=== PATIENT | female | born 2000 | race Caucasian/White ===

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

== ENCOUNTER 2021-03-29 15:55 | Outpatient (RCR) | payer OTHER, SELFPAY ==
[2021-01-14 10:00] VITALS: BMI 44.6
== END 2021-04-05 23:59 ==
LOC: NS 15:55
PROVIDERS: PCP Family Medicine; Visit Provider Family Medicine
DX: Z71.3 Dietary counseling and surveillance (principal); E66.01 Morbid (severe) obesity due to excess calories
CPT/HCPCS: 97802

== ENCOUNTER 2021-04-27 08:00 | Outpatient (RCR) | payer OTHER, SELFPAY ==
[2021-01-14 10:00] VITALS: BMI 44.6
== END 2021-04-27 23:59 | disposition home or self-care (01) ==
LOC: NS 08:00
PROVIDERS: PCP Family Medicine; Visit Provider Family Medicine
DX: Z71.3 Dietary counseling and surveillance (principal); E66.01 Morbid (severe) obesity due to excess calories
CPT/HCPCS: 97803

== ENCOUNTER → 2021-10-31 | Outpatient (CLI) | payer OTHER, SELFPAY | END | disposition home or self-care (01) | LOC: LABSPEC 11-01 06:11 | PROVIDERS: PCP Family Medicine; Referring Provider Family Medicine; Visit Provider Family Medicine | DX: U07.1 COVID-19 (principal) | CPT/HCPCS: 87635; U0005; U0003 ==

== ENCOUNTER 2021-11-10 10:32 | Outpatient (CLI) | payer OTHER, SELFPAY | END 2021-11-10 23:59 | disposition short-term general hospital (02) | PROVIDERS: PCP Family Medicine; Referring Provider Family Medicine; Visit Provider Family Medicine | DX: G47.10 Hypersomnia, unspecified (principal); R06.83 Snoring | CPT/HCPCS: 95806 ==

== ENCOUNTER 2022-01-24 07:48 | Outpatient (CLI) | payer OTHER, SELFPAY | END 2022-01-24 23:59 | disposition home or self-care (01) | LOC: LABSPEC 01-26 07:49 | PROVIDERS: PCP Family Medicine; Visit Provider Family Medicine | DX: L05.91 Pilonidal cyst without abscess (principal) | CPT/HCPCS: 87070; 87075; 87077; 87186; 87205 ==

== ENCOUNTER 2022-02-14 10:25 | Outpatient (CLI) | payer OTHER, SELFPAY | END 2022-02-14 23:59 | disposition home or self-care (01) | PROVIDERS: PCP Family Medicine; Referring Provider Family Medicine; Visit Provider Family Medicine | DX: Z20.828 Contact with and (suspected) exposure to other viral communicable diseases (principal) | CPT/HCPCS: 87635; U0003; U0005 ==

== ENCOUNTER → 2022-07-25 | Outpatient (CLI) | payer OTHER, SELFPAY | END | disposition home or self-care (01) | PROVIDERS: PCP Family Medicine; Visit Provider Family Medicine | DX: Z20.828 Contact with and (suspected) exposure to other viral communicable diseases (principal) | CPT/HCPCS: 87635; U0003; U0005 ==

== ENCOUNTER → 2023-04-12 | Outpatient (CLI) | payer OTHER, SELFPAY ==
[2023-04-12 13:08] LABS: Absolute Lymphocyte Count 2.47 X10^3/uL (0.83-4.51); Absolute Neutrophil Count 5.6 X10^3/uL (2.0-7.7); Basophil# 0.07 X10^3/uL; Basophil% 0.8 % (0-1); Eosinophil# 0.29 X10^3/uL; Eosinophils% 3.2 % (0-5); Hematocrit 44.9 % (37-47); Hemoglobin 14.9 g/dL (12.0-15.0); Lymphocyte # 2.47 X10^3/ul (0.83-4.51); Lymphocyte % 27.4 % (19-41); Mean Corp Hgb Conc 33.2 g/dL (32-36); Mean Corpuscular Hgb 29.6 pg (27.0-32.0); Mean Corpuscular Volume 89.3 fL (81-99); Mean Platelet Vol. 9.6 fl (6.2-12.0); Monocyte# 0.54 X10^3/uL; NRBC Flagged by Analyzer 0 % (0-5); Neutrophil # 5.62 X10^3/uL (2.7-7.7); Neutrophil % 62.3 % (47-70); Platelet Count 326 K/mm3 (150-450); RBC Distribution Width CV 11.9 % (11.6-14.6); RBC Distribution Width SD 38.6 fl (35.1-43.9); Red Blood Count 5.03 M/mm3 (4.2-5.4)
[2023-04-12 14:13] LABS: ALB/GLOB Ratio 0.8 RATIO (0.9-2.4); AST(SGOT) 12 U/L (15-37); Alanine Aminotransfer ALT/SGPT 27 U/L (13-56); Albumin, Serum 3.3 g/dL (3.2-5.0); Alkaline Phosphatase 85 U/L (45-117); Anion Gap 8 (5-15); BUN 8 mg/dL (7-18); BUN/Creat Ratio 11.2 RATIO (10-20); Calcium,Total 9.5 mg/dL (8.5-10.1); Chloride 109 mmol/L (98-107); Creatinine, Serum 0.72 mg/dL (0.55-1.02); EST Glomerular Filtration Rate 108 mL/min (>60); Est Glom Filt Rate - Afr Amer 131 mL/min (>60); Globulin 4.3 g/dL (2.2-4.2); Glucose 123 mg/dL (74-106); Potassium 3.6 mmol/L (3.5-5.1); Protein, Total 7.6 g/dL (6.4-8.2); Sodium Level 139 mmol/L (136-145)
[2023-04-12 14:22] LABS: Vitamin B12 615 pg/mL (211-911); Vitamin D,25 Hydroxy 43.2 ng/mL
== END | disposition home or self-care (01) ==
LOC: BFHLAB 10:34
PROVIDERS: PCP Nurse Practitioner Family; Referring Provider Nurse Practitioner Family; Visit Provider Nurse Practitioner Family
DX: R53.83 Other fatigue (principal); J20.9 Acute bronchitis, unspecified
CPT/HCPCS: 36415; 80053; 82306; 82607; 85025

== ENCOUNTER → 2024-02-22 | Outpatient (CLI) | payer OTHER, SELFPAY ==
[2024-02-22 15:58] LABS: T4 Free Direct 1.23 ng/dL (0.76-1.46); Thyroid Stim Hormone (TSH) 1.49 uIU/mL (0.358-3.74)
== END | disposition home or self-care (01) ==
PROVIDERS: PCP Family Medicine; Referring Provider Nurse Practitioner Family; Visit Provider Nurse Practitioner Family
DX: Z11.3 Encounter for screening for infections with a predominantly sexual mode of transmission (principal); N93.9 Abnormal uterine and vaginal bleeding, unspecified
CPT/HCPCS: 36415; 84439; 84443

== ENCOUNTER 2024-02-27 07:55 | Emergency (ER) | payer OTHER, SELFPAY ==
[2024-02-27 07:56] VITALS: BP 132/88; PULSE 92; RESP 18; TEMP 36.3; O2SAT 99; BMI 47.5
[2024-02-27] MEDS: Ondansetron 4 MG/2 ML Vial IV (08:43)
[2024-02-27] MEDS: Morphine 4 MG/ML Syringe IV (08:43)
[2024-02-27] MEDS: 0.9% Normal Saline (1000mL) 1,000 ML 125 ML IV (08:50)
[2024-02-27 08:55] LABS: Absolute Lymphocyte Count 2.08 X10^3/uL (0.83-4.51); Absolute Neutrophil Count 9.3 X10^3/uL (2.0-7.7); Basophil# 0.07 X10^3/uL; Basophil% 0.6 % (0-1); Eosinophil# 0.31 X10^3/uL; Eosinophils% 2.5 % (0-5); Hemoglobin 14.9 g/dL (12.0-15.0); Lymphocyte # 2.08 X10^3/ul (0.83-4.51); Lymphocyte % 16.8 % (19-41); Mean Corp Hgb Conc 33.9 g/dL (32-36); Mean Corpuscular Hgb 29.6 pg (27.0-32.0); Mean Corpuscular Volume 87.5 fL (81-99); Mean Platelet Vol. 9.4 fl (6.2-12.0); Monocyte# 0.64 X10^3/uL; Monocyte% 5.2 % (0-10); NRBC Flagged by Analyzer 0 % (0-5); Neutrophil # 9.27 X10^3/uL (2.7-7.7); Neutrophil % 74.6 % (47-70); Platelet Count 301 K/mm3 (150-450); RBC Distribution Width CV 12.5 % (11.6-14.6); RBC Distribution Width SD 39.8 fl (35.1-43.9); Red Blood Count 5.03 M/mm3 (4.2-5.4); White Blood Count 12.4 K/mm3 (4.4-11.0)
[2024-02-27 09:13] LABS: Internal QC Validated? YES +Cl - CLEAR BKGD; Pregnancy, Serum, hCG Quali. NEGATIVE Negative
--- NOTE | 2024-02-27 09:20 | ED.VIS.GI ---
HPI HPI - GI History of Present Illness Chief Complaint: Abd Pain Informant: patient and parent Narrative Narrative: 24-year-old female presenting to the emergency room with a chief complaint of abdominal pain vomiting. Patient states for the past couple months she has had pain mostly left-sided with intermittent diarrhea. She has an upcoming appointment with gastroenterology but not to the summer. Today in the last night she had pain right upper quadrant going towards her right flank. She notes some vomiting with it. No reported fevers. She has not yet had anything to eat or drink today. She otherwise states she is very healthy. Yesterday's bowel movement was formed as has the past couple weeks. No skin discoloration or discoloration of stool. [facility] Medical History Depression with anxiety Encounter for screening for COVID-19 Pilonidal cyst Home Medications cyclobenzaprine 5 mg tablet 5 - 10 mg PO QHS 02/27/24 [History Last Taken Unknown] omeprazole 20 mg capsule,delayed release 20 mg PO BID #28 caps 02/27/24 [Rx Last Taken Unknown] scopolamine base 1 mg over 3 days transdermal patch 1 patch topical Q3D PRN nausea and vomiting 02/27/24 [History Last Taken Unknown] sertraline 100 mg tablet 100 mg PO DAILY 02/27/24 [History Last Taken Unknown] sucralfate 1 gram tablet (Carafate) 1 g PO Q6H #56 tabs 02/27/24 [Rx Last Taken Unknown] Allergy/AdvReac Type Severity Reaction Status Date / Time No Known Allergies Allergy Verified 01/14/21 10:02 Family History Mother Asthma Skin cancer Grandmother Rheumatoid arthritis Hyperthyroidism Skin cancer Asthma ADHD (attention deficit hyperactivity disorder) Myocardial infarction Grandfather Kidney disease Aortic stenosis Diabetes Surgical History No history of previous surgery Social History Smoking Status: Never smoker alcohol intake: never what type of physical activity do you participate in: additional details: soccer and conditioning frequency: 3-4 times per week ROS ROS ED Constitutional Constitutional ED: Denies chills, fever(s) or weight loss Eyes Eyes: Denies change in vision or diplopia ENT ENT ED: Denies ear pain, rhinorrhea or sore throat Cardiovascular Cardiovascular: Denies chest pain, orthopnea, palpitations or racing heartbeat Respiratory/Chest Respiratory/Chest: Denies cough, dyspnea or orthopnea Gastrointestinal Gastrointestinal: Reports abdominal pain, diarrhea, nausea and vomiting Genitourinary Genitourinary ED: Denies dysuria, hematuria or urinary frequency Musculoskeletal Musculoskeletal: Denies arthralgias or myalgias Integumentary Denies abscess or rash Neurologic Neurologic: Denies headache(s) or weakness Psychiatric Psychiatric: Denies anxiety, depression, suicidal ideation or suicidal thoughts Endocrine Endocrinology: Denies polydipsia, polyphagia or polyuria Allergic/Immunologic Allergic/Immunologic ED: Denies mouth swelling, tongue swelling or urticaria EXAM Physical Exam Const Vital Signs: 02/27/24 07:56 02/27/24 09:55 02/27/24 11:00 Temperature 97.4 F L Temperature Source Temporal Pulse Rate 92 75 78 Respiratory Rate 18 19 H 16 Blood Pressure 132/88 H 152/113 H 122/69 H Blood Pressure Mean 102 126 86 Pulse Ox 99 97 98 Oxygen Delivery Method Room Air Room Air Room Air Positive well nourished and well developed General Appearance ED: well developed HEENT Reports normocephalic, head/scalp atraumatic and moist mucous membranes Eyes PERRL and EOMs intact bilaterally Neck no lymphadenopathy, supple and no JVD Resp normal respiratory effort and clear to auscultation bilaterally Cardio regular rate, regular rhythm and no murmurs GI Inspection: Negative for abdominal distention Auscultation: normoactive bowel sounds Palpation: soft and tender RUQ; Negative for guarding or rebound tenderness present Back/Spine no CVA tenderness and normal ROM Extremity normal to inspection General Extremety ED: Negative for edema General Extremity: Negative for edema Neuro oriented x3 and CN's II-XII intact bilaterally Sensorium / Orientation: alert Motor Exam: strength 5/5 throughout Psych mental status grossly normal Mood & Affect: Negative for depressed or tearful Skin no rashes or lesions noted and no wounds MDM MDM MDM Narrative Medical decision making narrative: Differential includes but not limited to gallbladder disease pancreatitis colitis COFFMAN fatty liver UTI ureterolithiasis GERD/PUD. White count 12.4 platelet count of 301 hemoglobin 14.9 test is negative. Lipase 29. Normal LFTs and bilirubin. BMP shows a glucose of 103. Patient received IV fluids morphine and Zofran. CT of the pelvis was obtained which is negative for acute findings. Please see the radiologist read. Urinalysis was obtained which demonstrates 10-25 white cells 10-25 squamous cells 2+ bacteria. This most likely contaminated specimen with no overt infection. Patient received morphine Zofran and IV fluids. At this point we talked about following up. We talked about the possibility of needing a HIDA scan. My bedside ultrasound does not demonstrate any pericholecystic fluid noted as the CT. Negative Ratliff's. Her doctor reportedly has called her in omeprazole and Carafate which I think is a reasonable place to start and then arrange follow-up to see if it has made any changes. Patient to return if worsening or concerns History & Record Review Discussion w/independent historian: Patient and Family Lab Data Attestation: I reviewed the patient's lab results. Labs: Laboratory Results - last 24 hr 02/27/24 02/27/24 08:38 10:05 WBC 12.4 H RBC 5.03 Hgb 14.9 Hct 44.0 MCV 87.5 MCH 29.6 MCHC 33.9 RDW Std Deviation 39.8 RDW Coeff of Nuvia 12.5 Plt Count 301 MPV 9.4 Immature Gran % (Auto) 0.300 Neut % (Auto) 74.6 H Lymph % (Auto) 16.8 L Geary % (Auto) 5.2 Eos % (Auto) 2.5 Baso % (Auto) 0.6 Absolute Neuts (auto) 9.3 H Absolute Lymphs (auto) 2.08 Nucleated RBC % 0 Sodium 140 Potassium 3.7 Chloride 111 H Carbon Dioxide 23.0 Anion Gap 6 BUN 10 Creatinine 0.75 Estim Creat Clear Calc 128.94 Est GFR (MDRD) Af Amer 123 Est GFR (MDRD) Non-Af 102 BUN/Creatinine Ratio 13.4 Glucose 103 Calcium 8.9 Total Bilirubin 0.60 Direct Bilirubin 0.16 AST 13 L ALT 23 Alkaline Phosphatase 74 Total Protein 7.4 Albumin 3.4 Globulin 4.0 Lipase 29 Serum , Qual NEGATIVE Urine Color Yellow Urine Clarity Clear Urine pH 5.0 Ur Specific Maskell 1.015 Urine Protein Negative Urine Glucose (UA) Normal Urine Ketones Negative Urine Occult Blood Negative Urine Nitrite Negative Urine Bilirubin Negative Urine Urobilinogen Normal Ur Leukocyte Esterase 500 H Urine RBC 0 SEEN Urine WBC 10-25 SEEN Ur Squamous Epith Cells 10-25 SEEN Urine Bacteria 1+ Urine Mucus 0 SEEN Radiography Diagnostic Testing: Clinical Impression(s) from Imaging Studies Abdomen/Pelvis CT 02/27/24 09:27 IMPRESSION: Normal enhanced CT of the abdomen and pelvis. Electronically Signed: Flakito Garcia MD at 10:09 EDT , Discharge Plan Triage Chief Complaint: Abd Pain ED Provider: Rico Madrigal Dx/Rx/DC Orders Clinical Impression: Abdominal pain Instructions: Abdominal Pain Prescriptions: New omeprazole 20 mg capsule,delayed release(DR/EC) 20 mg PO BID Qty: 28 0RF sucralfate [Carafate] 1 gram tablet 1 g PO Q6H Qty: 56 0RF No Action scopolamine base 1 mg over 3 days patch 3 day 1 patch topical Q3D PRN (Reason: nausea and vomiting) cyclobenzaprine 5 mg tablet 5 - 10 mg PO QHS sertraline 100 mg tablet 100 mg PO DAILY Hold Instructions: Order Completed Primary Care Provider: Joann Arcos Referrals: Joann Arcos DO [Primary Care Provider] - 1-2 Weeks Disposition Disposition: Home, Self Care
[2024-02-27 09:23] LABS: AST(SGOT) 13 U/L (15-37); Alanine Aminotransfer ALT/SGPT 23 U/L (13-56); Albumin, Serum 3.4 g/dL (3.2-5.0); Alkaline Phosphatase 74 U/L (45-117); Anion Gap 6 (5-15); BUN 10 mg/dL (7-18); BUN/Creat Ratio 13.4 RATIO (10-20); Bilirubin, Direct 0.16 mg/dL (0.00-0.30); Calcium,Total 8.9 mg/dL (8.5-10.1); Chloride 111 mmol/L (98-107); Creatinine, Serum 0.75 mg/dL (0.55-1.02); EST Glomerular Filtration Rate 102 mL/min (>60); Est Glom Filt Rate - Afr Amer 123 mL/min (>60); Estimated Creatinine Clearance 128.94 ml/min; Glucose 103 mg/dL (74-106); Lipase 29 U/L (13-75); Potassium 3.7 mmol/L (3.5-5.1); Protein, Total 7.4 g/dL (6.4-8.2); Sodium Level 140 mmol/L (136-145)
--- NOTE | 2024-02-27 09:27 | CT_ITS ---
STUDY: CT ABDOMEN AND PELVIS WITH CONTRAST REASON FOR EXAM: Female, 24 years old. Right-sided abdominal pain with nausea and vomiting. RADIATION DOSAGE (If Supplied By Facility): CTDIvol = ( 14.88 ) mGy, DLP = ( 1256.92 ) mGycm TECHNIQUE: Transaxial images were obtained from the dome of the diaphragm to the symphysis pubis without oral contrast. IV 100mL Isovue-300 was administered. Sagittal and coronal images were reconstructed. Individualized dose optimization techniques were used for this CT. COMPARISON: None. FINDINGS: The visualized lung bases are unremarkable. The visualized portions of the heart are within normal limits. Normal liver. Normal gallbladder and extrahepatic biliary system. Normal spleen. Normal pancreas. Normal bilateral adrenal glands. Normal right kidney. Normal left kidney. Normal visualized stomach. Normal small intestine. Moderate amount of fecal material is seen in the colon. The appendix is visualized and appears normal. Normal abdominal aorta. Normal inferior vena cava. Normal retroperitoneum. Normal urinary bladder. Normal abdominal wall. Normal osseous structures. CT/Abdomen/Pelvis W IV Cont ONLY IMPRESSION: Normal enhanced CT of the abdomen and pelvis. Electronically Signed: Flakito Garcia MD at 10:09 EDT ,
[2024-02-27 09:55] VITALS: BP 152/113; PULSE 75; RESP 19; O2SAT 97
[2024-02-27 10:19] LABS: Mucous, Urine 0 SEEN /hpf (<or=2+); Red Blood Cells-Urine 0 SEEN /hpf (0-5)
[2024-02-27 10:54] LABS: Color, Urine Yellow (Yellow); Glucose, Dipstick Normal (Normal); Ketone-Dipstick Negative (Negative); Leukocyte Esterase-Dipstick 500 /ul (Negative); Nitrite-Dipstick Negative (Negative); Occult Blood-Urine Negative /ul (Negative); Protein-Dipstick Negative (Negative); Specific Gravity, Urine 1.015 (1.002-1.030); Urine Bilirubin Dipstick Negative (Negative); Urine Clarity Clear (Clear); Urine Urobilinogen Normal (Normal)
[2024-02-27 11:00] VITALS: BP 122/69; PULSE 78; RESP 16; O2SAT 98
[2024-02-27 11:10] LABS: Squamous Epithelial Cells - UA 10-25 SEEN /hpf (5-10)
[2024-02-27 11:11] LABS: Bacteria 1+ /hpf (None Seen); White Blood Cells 10-25 SEEN /hpf (0-5)
[2024-02-27 11:53] VITALS: BP 117/78; PULSE 88; RESP 16; TEMP 36.6; O2SAT 97
== END 2024-02-27 11:54 | disposition home or self-care (01) ==
PROVIDERS: Emergency Provider Emergency Medicine; PCP Family Medicine; Visit Provider Emergency Medicine
DX: R10.11 Right upper quadrant pain (principal); R11.10 Vomiting, unspecified; F41.8 Other specified anxiety disorders; Z79.899 Other long term (current) drug therapy
CPT/HCPCS: 74177; 80048; 80076; 81001; 83690; 84703; 85025; 96361; 96374; 96375; 99282; J7030; Q9967; J2405

== ENCOUNTER → 2024-04-05 | Outpatient (CLI) | payer OTHER, SELFPAY ==
--- NOTE | 2024-04-05 09:39 | NM_ITS ---
CLINICAL: 24-year-old female with history of right upper quadrant abdominal pain. RADIONUCLIDE HEPATOBILIARY SCINTIGRAPHY COMPARISON: CT of the abdomen-pelvis report 02/27/2024 FINDINGS: Following the intravenous administration of 5.8 mCi of 99m Tc Mebrofenin, hepatobiliary images reveal: 1. Relatively prompt and homogeneous radiopharmaceutical concentration is noted by a normal sized liver. No parenchymal defects are identified. 2. Gallbladder activity is identified at 15 minutes post radiopharmaceutical administration. 3. Small intestinal tract is observed at 5 minutes following tracer injection. 4. Washout of the radiopharmaceutical by the hepatic parenchyma appears qualitatively normal. Cholecystokinin (0.02 ug/kg) was administered intravenously over a 30-minute period. The post CCK gallbladder ejection fraction calculated at 19 minutes following Cholecystokinin administration was noted to be 9.0 % (normal greater than 35%). NM/Hepatobilliary Img w/Pharm Int IMPRESSION: 1. ABNORMAL 99m Tc Mebrofenin hepatobiliary imaging examination with Cholecystokinin. A. A gallbladder ejection fraction calculated to be less than 35% following the administration of Cholecystokinin is consistent with the presence of functional hepatobiliary disease (gallbladder and/or sphincter of Oddi dyskinesia) and/or organic hepatobiliary disease (chronic acalculous cholecystitis and/or cystic duct syndrome) in patients with intermediate to high pretest probabilities of hepatobiliary illness. (Kannan Morales et al, Journal of Nuclear Medicine 32:1695, 1991). Electronically Signed: Shaquille Hester DO at 9:28 EDT ,
== END | disposition home or self-care (01) ==
LOC: NM 09:39
PROVIDERS: PCP Family Medicine; Referring Provider Family Medicine; Visit Provider Family Medicine
DX: R10.11 Right upper quadrant pain (principal); K29.70 Gastritis, unspecified, without bleeding
CPT/HCPCS: 78227; A9537; J2805

== ENCOUNTER 2024-05-07 05:49 | Day surgery (SDC) | payer OTHER, SELFPAY ==
[2024-05-07] VITALS (11 sets, daily range): BP systolic 117–147; BP diastolic 70–98; PULSE 71–107; RESP 14–20; TEMP 36.8–37.1; O2SAT 93–100; BMI 48.5
--- NOTE | 2024-05-07 | GALL_PTH ---
PATIENT: PENG [place]HAN [place] [facility] [place][id number] AGE/SX: 24/F ROOM: RE05/07/[address]: Dr. Sherie Red MD : 2000 BED: DIS: 05/07/2024 SPEC #: [id number] RECD: 05/07/24 13:21 STATUS: CONNIE RESincere #: [id number] LEXY: 05/07/24 00:[address]: Sherie Red DEPT: SURGICAL PATHOLOGY RECD BY: Jossue Gomez ENTERED: 05/07/24 13:21 SP TYPE: PEDRO JANSEN DR: Dr. Joann Arcos DO Tissues: Gallbladder, NOS Procedures: Surgery Specimen Level III HEADER OPERATION: Laparoscopic, cholecystectomy with IOC PRE-OP DIAGNOSIS: Biliary dyskinesia TISSUE SUBMITTED: Gallbladder MICROSCOPIC DIAGNOSIS Gallbladder, cholecystectomy: Mild chronic cholecystitis and cholesterolosis. See comment. ROSALIO/ 05/08/2024 COMMENT No stones are identified in the container or in the gallbladder. MICROSCOPIC DESCRIPTION Slides are reviewed. GROSS DESCRIPTION Received is one container labeled with the patient's name and designated gallbladder. The specimen consists of a gallbladder measuring 8.0 cm in length and up to 3.0 cm in diameter. The external surface is pink-plasencia, smooth and glistening for the most part. Focally it is granular, hemorrhagic and contains cautery artifact. The gallbladder contains green-yellow mucoid bile. No stones are identified in the container or in the gallbladder. The mucosa also shows several yellowish streaks consistent with cholesterolosis. The mucosa is bile-stained and without any mass lesions. The gallbladder wall measures up to 0.2 cm in thickness. Shroud Line Tier sections from the gallbladder and the cystic duct are submitted in one cassette. / SJ: 05/07/2024 TC:3 CPT: 35501
--- NOTE | 2024-05-07 06:03 | EKG12_ITS ---
Test Reason : PRE-OP Blood Pressure : / mmHG Vent. Rate : 085 BPM Atrial Rate : 085 BPM P-R Int : 124 ms QRS Dur : 074 ms QT Int : 364 ms P-R-T Axes : 024 008 012 degrees QTc Int : 433 ms Normal sinus rhythm Possible Inferior infarct , age undetermined Abnormal ECG No previous ECGs available Confirmed by ADRIA FLORES, ANGIE ([id number]), editorial writer JULI JEFFERSON ([id number]) on 05/13/2024 10:33:10 AM Referred By: Sherie Red Confirmed By:NAGIE COVINGTON MD
[2024-05-07 06:15] LABS: Internal QC Validated? YES +Cl - CLEAR BKGD; Pregnancy, Urine Negative Negative
[2024-05-07] MEDS: Lactated Ringers 1,000 ML 15 ML IV (06:19)
--- NOTE | 2024-05-07 06:30 | RAD_ITS ---
CLINICAL HISTORY: Female, 24 years old. Cholecystitis PROCEDURE: CHOLANGIOGRAM - intraoperative CONSENT: Informed consent obtained SEDATION: General FLUOROSCOPY TIME (if supplied): (7.7) seconds, 1 cm loop of 36 images obtained, dose of 3.43 mGy Placement of the catheter and the procedure were performed by: Sherie Red MD Fluoroscopy was provided by Sharon Salinas, who was present in the room time of the procedure. TECHNIQUE: (All elements of maximal sterile barrier technique followed, including US elements as applicable) After gallbladder was removed, the cystic duct was cannulized and contrast injected into the biliary tree. There is normal filling of the biliary tree. There is no evidence of abnormal dilatation or filling defect to suspect a retained stone. There is free flow of contrast into the duodenum. No evidence of extravasation of contrast outside the biliary tree to suspect a bile leak. RAD/Cholangiogram/ O R,Initial IMPRESSION: Normal intraoperative cholangiogram Electronically Signed: Cedric Morales MD at 11:06 EDT ,
--- NOTE | 2024-05-07 07:08 | HP.PCM_ITS ---
History and Physical Date of Admission: 05/07/24 Date of Service: 04/18/24 MR#: [id number] Acct: [id number] Name: PENG KHAN Rep #: [id number] : 2000 Provider: Dr. Sherie Red MD Age/Sex: 24/F Location: [facility] Status: Signed Intake Vital Signs 02/26/2407:56 04/17/2408:19 04/18/2409:29 Height 4 ft 11 in 4 ft 11 in 4 ft 11 in Weight: 240 lb BMI 48.4 BP 116/80 Blood Pressure Location Rt brachial Position Sitting Respiration 18 Pulse 91 Pulse Source Monitor Temp 97.3 F L Temp Source Temporal Pulse Oximetry (%) 99 Oxygen Delivery Method room air Intake Visit Reasons: ABNORMAL HIDA Chief Complaint: abnormal HIDA Is patient in pain?: Yes (I always have stomach pain ) Allergies No Known Allergies Allergy (Verified 04/18/24 09:30) Medications ?Medication ?Instructions ?Recorded ?Confirmed ?Type bupropion HCl 100 mg tablet,12 hr 100 mg PO DAILY 02/22/24 04/18/24 History sustained-release etonogestrel 0.12 mg-ethinyl 1 vag ring vaginal Q4W 02/22/24 04/18/24 History estradiol 0.015 mg/24 hr vaginal ring (NuvaRing) topiramate 25 mg tablet (Topamax) 25 mg PO DAILY 02/22/24 04/18/24 History cyclobenzaprine 5 mg tablet 5 - 10 mg PO QHS 02/27/24 04/18/24 History scopolamine base 1 mg over 3 days 1 patch topical Q3D PRN nausea and 02/27/24 04/18/24 History transdermal patch vomiting sucralfate 1 gram tablet (Carafate) 1 g PO Q6H #56 tabs 02/27/24 04/18/24 Rx pantoprazole 40 mg tablet,delayed 40 mg PO BID 04/18/24 04/18/24 History release PFSH Medical History Anxiety and depression Encounter for screening for COVID-19 Depression with anxiety Pilonidal cyst Surgical History No history of previous surgery Family History Mother Asthma Skin cancerGrandmother Rheumatoid arthritis Hyperthyroidism Skin cancer Asthma ADHD (attention deficit hyperactivity disorder) Myocardial infarctionGrandfather Kidney disease Aortic stenosis DiabetesMother Cancer SKin Social History current occupational status: employed current occupation: [email or web address] Smoking Status: Never smoker alcohol intake: current alcohol intake frequency: holidays/special occasions only substance use type: does not use what type of physical activity do you participate in: additional details: soccer and conditioning frequency: 3-4 times per week seatbelt use: always do you feel safe at home: Yes HPI HPI HPI: 24-year-old female presents due to biliary dyskinesia. Patient had a HIDA scan showed ejection fraction at 9% at 20 minutes. Patient states she been having right upper quadrant pain occasionally but more recently has been more constant. Patient describes it more bandlike across the upper abdomen. She states yesterday morning did wake her up at 5:30 in the morning. Patient has occasional nausea denies any vomiting. Patient is currently on Protonix as well as Carafate since February. ROS General General: Yes weight change (gain of 30lbs in five months ) and fatigue; No appetite, colon cancer, breast cancer or weakness HEENT HEENT: No difficulty swallowing, eye injury, eye surgery, swollen glands or hoarseness Endo Endocrine: No thyroid disease, diabetes mellitus, thyroid cancer, Hair loss, heat intolerance or cold intolerance Skin Skin: No rash or changing moles Musc Musculoskeletal: No back problems, arthritis, rheumatoid arthritis, gout or joint pain Cardio Cardiovascular: No murmur, pacemaker, heart disease, atrial fibrillation, high blood pressure, heart attack, heart stent, palpitations, shortness of breat with exertion or chest pain Psych Psychiatric: Yes depression and anxiety; No hearing voices Resp Respiratory: No shortness of breath, No sleep apnea, No cough, No COPD, No asthma, No emphysema and No wheezing Gastro Gastrointestinal: Yes abdominal pain, Yes nausea or vomiting, Yes diarrhea, Yes constipation, No blood in stool, Yes acid reflux, No hemorrhoids, No ulcers, Yes gallbladder problem and No black,tarry stools Jeff Hematologic: No blood thinners, No blood disorders, No bleeding, No anemia and No blood clots Neuro Neurologic: No numbness, No tingling and No weakness Exam Const General: cooperative, comfortable and no acute distress HENMT Head: normocephalic and atraumatic Neck Neck: supple Resp Effort & Inspection: normal respiratory effort Cardio Rate: regular rate GI Inspection: non-distended Palpation: soft, no hernias and tender in the epigastrum and in the RUQ; Ratliff's sign negative and with no rebound tenderness Skin General: no rashes or lesions noted Neuro General: CN's II-XI intact bilaterally Extrem General: normal to inspection Psych Mental Status: mental status grossly normal Attitude: cooperative Assessment and Plan Assessment and Plan (1) Biliary dyskinesia: Status: Acute Plan Recommend patient avoid fatty or greasy food. Patient states she was eating peanut butter and jelly sandwiches-- it did also recommend stay away from peanut butter. Reviewed the anatomy with the patient and discussed the procedure: laparoscopic cholecystectomy with possible cholangiograms, possible open. Review risks including but not limited to bleeding, infection, hernia, bile leak, retained gallstones requiring another procedure ERCP- Endoscopic Retrograde Cholangiopancreatography, injury to another organ (bile ducts, common bile duct, small bowel, etc.) and conversion to an open procedure. All questions were answered. Sherie Red M.D. Pager: [phone] [facility] [address] [place] [address], [address] [place] [address] Office: [phone] Coding Level of Care Code Off vis,new,level 3 Diagnoses Biliary dyskinesia K82.8 04/18/24 1020 <Electronically signed by Sherie Red MD> Date Sherie Red MD
--- NOTE | 2024-05-07 07:08 | PRE.ANES_ITS ---
ASA Classification* ASA Classification ASA Classification: 3 Assessment & Plan Anesthesia* Anesthesia Assessment Anesthesia Assessment: Discussed sedation and/or anesthesia options, risks, benefits, and alternatives with patient/parents/legal guardian/POA. Questions invited. The patient/parents/legal guardian/POA seems to understand and agrees to proceed with anesthesia plan. Reviewed the physical assessment, medical history, allergy history and patient home medications list prior to surgery/procedure/anesthetic and documented any changes. Performed airway and anesthesia risk assessments. Anesthesia Type Anesthesia Type: General (see written pre anesthesia record for full assessment ) Anesthesia Focused Assessment* Temperature: 98.8 F Pulse Rate: 89 Blood Pressure: 117/84 Respiratory Rate: 16 Pulse Ox: 99 Airway Assessment Mouth opens: >3 cm Mallampati Score: III Focused Labs Anesthesia Preop lab: CBC WBC 12.4 K/mm3 (4.4-11.0) H 02/27/24 08:38 RBC 5.03 M/mm3 (4.2-5.4) 02/27/24 08:38 Hgb 14.9 g/dL (12.0-15.0) 02/27/24 08:38 Hct 44.0 % (37-47) 02/27/24 08:38 Plt Count 301 K/mm3 (150-450) 02/27/24 08:38 CHEMISTRY Potassium 3.7 mmol/L (3.5-5.1) 02/27/24 08:38 Sodium 140 mmol/L (136-145) 02/27/24 08:38 Magnesium 2.0 mg/dL (1.8-2.4) 10/04/16 13:30 BUN 10 mg/dL (7-18) 02/27/24 08:38 Creatinine 0.75 mg/dL (0.55-1.02) 02/27/24 08:38 Glucose 103 mg/dL (74-106) 02/27/24 08:38 TSH 1.49 uIU/mL (0.358-3.74) 02/22/24 14:43 COAG Urine Test Negative Negative 05/07/24 05:55 Tst Clinic Negative 02/22/24 14:38 Pre-Assessment Diagnosis/Proposed Procedure Planned Operative Procedure(s): LAP MICHELE WITH GRAMS Anesthesia History 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 When Was Last Pacemaker Check QUESTION #4 FULL TEXT: You/Your Family Experience fever (hyperthermia) with Anesthesia Last Oral Intake Last Oral intake: Last Oral Intake NPO since 00:00 05/07/24 06:19 Meds taken in AM with sips of water? Meds patient instructed to take am of surgery PONV PONV - early childhood education instructor: PONV - early childhood education instructor Female Yes 04/24/24 14:05 HX of Motion Sickness Yes 04/24/24 14:05 HX of N/V After Surgery No 04/24/24 14:05 Non-Smoker Yes 04/24/24 14:05 Duration of Surgery greater No 04/24/24 14:05 than 60 minutes Number of Risk Factors 3 04/24/24 14:05 PONV Score Moderate Risk 04/24/24 14:05 Height & Weight Height & Weight: Anesthesia: Height & Weight Height 4 ft 11 in 05/07/24 06:19 Weight: 109 kg 05/07/24 06:19 Body Mass Index (BMI) 48.5 05/07/24 06:19 Respiratory Assessment Respiratory Assessment - early childhood education instructor: Respiratory Tract Infection Hx - early childhood education instructor Hx Respiratory Tract Infection Yes: SINUS INFECTION AND 04/24/24 14:05 RESPIRTORY INFECTION/TREATED AND RESOLVING STOP Sleep Apnea STOP Sleep Apnea - early childhood education instructor: STOP Sleep Apnea - early childhood education instructor Hx Hypertension No 04/24/24 14:05 Hx Sleep Apnea No 04/24/24 14:05 CPAP BIPAP Do you snore loudly (louder Yes 04/24/24 14:05 than talking or can be heard Do you often feel tired/ Yes 04/24/24 14:05 fatigued/ sleepy during daytime? Has anyone observed you stop No 04/24/24 14:05 breathing during sleep? STOP Results Positive 04/24/24 14:05 QUESTION #5 FULL TEXT : Do you snore loudly (louder than talking or can be heard through closed doors)? 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 Specify any problems Hx of Preganancy in last 3 No 04/24/24 14:05 Months Nurse Filling Out Transfusion DSCHRIBER 04/24/24 14:05 & Questions: Date: 04/24/24 04/24/24 14:05 Time: 14:06 04/24/24 14:05 Patient unable to answer at this time (ie. confused, unrespo /Reproduction History /Reproductive History - early childhood education instructor: /Reproductive Hx- early childhood education instructor Hx Now No 04/24/24 14:05 Gestational Age (in weeks): EDC: Hx Hx Para Hx Section SAB No 04/24/24 14:05 Active Medications Active Medications: Current Medications Generic Name Dose Route Start Last Admin Trade Name Freq PRN Reason Stop Dose Admin Cefazolin Sodium 2 gm/ Sodium 110 mls @ 150 mls/hr 05/07/24 07:30 Chloride IV 05/07/24 08:13 PREOP ONE Lactated Ringer's 1,000 mls @ 15 mls/hr 05/07/24 06:15 05/07/24 06:19 IV 15 mls/hr .Q48H CARIDAD Administration PFSH Medical History Wears glasses Anemia Migraine headache Shortness of breath on exertion Non-smoker Anxiety and depression Encounter for screening for COVID-19 Depression with anxiety Pilonidal cyst Home Medications ?Medication ?Instructions ?Recorded ?Last Taken ?Type etonogestrel 0.12 mg-ethinyl 1 vag ring vaginal Q4W 02/22/24 Unknown History estradiol 0.015 mg/24 hr vaginal ring (NuvaRing) topiramate 25 mg tablet (Topamax) 25 mg PO QHS 02/22/24 05/05/24 History cyclobenzaprine 5 mg tablet 5 - 10 mg PO QHS 02/27/24 05/03/24 History scopolamine base 1 mg over 3 days 1 patch topical Q3D PRN nausea and 02/27/24 04/07/24 History transdermal patch vomiting bupropion HCl 300 mg 24 hr tablet, 300 mg PO QHS 04/24/24 05/05/24 History extended release Allergy/AdvReac Type Severity Reaction Status Date / Time No Known Allergies Allergy Verified 04/24/24 14:00 Family History Mother Asthma Skin cancer Grandmother Rheumatoid arthritis Hyperthyroidism Skin cancer Asthma ADHD (attention deficit hyperactivity disorder) Myocardial infarction Grandfather Kidney disease Aortic stenosis Diabetes Mother Cancer SKin Surgical History No history of previous surgery Social History current occupational status: employed current occupation: [employer] Smoking Status: Never smoker alcohol intake: current alcohol intake frequency: holidays/special occasions only substance use type: does not use what type of physical activity do you participate in: additional details: soccer and conditioning frequency: 3-4 times per week seatbelt use: always do you feel safe at home: Yes Review of Systems (Anesthesia) ROS Narrative System reviewed and no additional complaints, except as documented.
[2024-05-07] MEDS: Cefazolin 2 GM in 0.9% Normal Saline (100mL Bag) 100 ML IV (07:30)
[2024-05-07] MEDS: Bupivacaine Mpf 0.5% 30 ML VIAL (08:36)
--- NOTE | 2024-05-07 08:36 | PCM.OPRPT ---
Report of Operation Date of Procedure: 05/07/24 Pre-Operative Diagnosis: Biliary dyskinesia Post-Operative Diagnosis: Same Surgery/Procedure Performed:: Laparoscopic cholecystectomy with cholangiograms Surgeon: Sherie Red acetylene burner: Livier Lomas Type of Anesthesia: General/Supplemental Anesthesiologist: Michael Ibrahim Special Medications: Ancef 2 g IV x 1 Specimen's removed: Gallbladder Estimated Blood Loss (mL): < 10 cc Description of Procedure: Indications: this is a 24 year-old female who developed abdominal pain/nausea/vomiting and on workup was found to have biliary dyskinesia, with a normal common bile duct. Laparoscopic cholecystectomy was elected. Description procedure: The patient was placed on operating table in supine position. A timeout was completed verifying correct patient, procedure, site, position and special equipment prior to beginning procedure. General Anesthesia was induced. The abdomen was prepped and draped in usual sterile fashion. An incision was made in the natural skin line above the umbilicus. The fascia was elevated and incised. The peritoneum was elevated and incised. Entry into the peritoneum was confirmed visually and no bowel was noted in the vicinity of the incision. Bruce trocar was placed. The abdomen was insufflated with carbon dioxide to a pressure of 12-15 mmHg. Patient tolerated insufflation well. The laparoscope was then inserted and abdomen inspected. No injuries from initial trocar placement were noted. Additional trochars were then inserted in the following locations 5 mm trocar in the epigastrium and 2 more 5 mm trochars along the right costal margin. The abdomen was inspected no abnormalities were found. The table is placed in reverse Trendelenburg position with the right side up. The dome of the gallbladder was grasped with atraumatic grasper passed through the lateral port and retracted over the dome of the liver. Infundibulum was then grasped with atraumatic grasper through the midclavicular port and retracted to the right lower quadrant. This maneuver exposed Calot's triangle. The peritoneum overlying the gallbladder infundibulum was then incised and cystic duct and artery identified and circumferentially dissected. Selby catheter was used for cholangiograms. The cholangiogram showed good filling of the common bile duct into the duodenum with no filling defects, good filling of the right and left bile ducts as well. The cystic duct and artery were then doubly clipped and divided close to the gallbladder. The gallbladder then dissected from its peritoneal attachments by electrocautery. Hemostasis was checked and the gallbladder was removed using the endoscopic retrieval bag through the umbilical port. The gallbladder is passed off table as specimen. The gallbladder fossa was irrigated with saline and hemostasis obtained. There is no evidence of bleeding from the gallbladder fossa or cystic artery leakage of bile from the cystic duct stump. Secondary trochars removed under direct vision. No bleeding was noted the trocar sites. The laparoscope was withdrawn and umbilical trocar removed. The abdomen was allowed to collapse. The fascia of the 12 mm trocar was closed with a [id number] 0 Vicryl suture. The skin was closed with sutures of 4-0 Monocryl and Steri-Strips. The patient was extubated. The patient tolerated procedure well and was taken to the postanesthesia care unit in stable condition. Complications none
--- NOTE | 2024-05-07 08:44 | EX.PCM.DISCH ---
Discharge Instructions Diet Discharge Diet: Light diet - advance as tolerated Activity Discharge Activity: May Not Drive (while taking narcotic pain medications.) May shower in (days): 1 Lifting Restrictions: no lifting >20 lbs x 2 wks, no strenuous exercise for 4 wks Dressing / Incision Call your doctor if your incision/area has: Continuous Slow Oozing, Sudden Increased Bleeding, Increased Pain/ Swelling, Increased Redness, Foul Smelling Discharge and Swelling at the incision site Call your doctor if you observe: Fever of 101 or Higher Remove Dressing in: 2 days Cleanse incision/area with: Soap & Water Additional Dressing/Incision Instructions:: Steri-Strips will fall off in 7 to 10 days, if they do not fall off okay to remove after 10 days. Follow Up Care Please Follow Up With: Sherie Red MD When: Call the office for a follow-up appointment 2 weeks; after 5 PM and on the weekends call [phone] with any concerns. Test Results: Test results from this visit will be discussed in further detail at your follow-up appointment, if applicable. Discharge Plan Admission Attending Provider: Sherie Red Primary Care Provider: Joann Arcos Instructions Print Language: Cambodian Discharge Orders/Prescriptions Prescriptions: New tramadol 50 mg tablet 50 mg PO Q6H PRN (Reason: pain) Qty: 14 0RF Continued etonogestrel-ethinyl estradiol [NuvaRing] 0.12-0.015 mg/24 hr ring 1 vag ring vaginal Q4W Rx Instructions: leave in place for 3 weeks of a 4-week cycle topiramate [Topamax] 25 mg tablet 25 mg PO QHS bupropion HCl 300 mg tablet extended release 24 hr 300 mg PO QHS scopolamine base 1 mg over 3 days patch 3 day 1 patch topical Q3D PRN (Reason: nausea and vomiting) cyclobenzaprine 5 mg tablet 5 - 10 mg PO QHS Referrals / Follow Up: Joann Arcos DO [Primary Care Provider] - Disposition Disposition (needs filled in before D/C Order can be placed): Home, Self Care
--- NOTE | 2024-05-07 09:06 | PCM.POST.ANE ---
Anesthesia: Postop Eval I Current Vital Signs Temperature: 98.3 F Pulse Rate: 106 Blood Pressure: 146/94 Respiratory Rate: 16 Pulse Ox: 98 Oxygen Delivery Method: Room Air Assessment Airway patent: Yes Spontaneous unlabored respirations: Yes Mental status: Awake and Calm nausea: No Vomiting: No Anesthesia Complication: No Fluid Hydration Crystalloid volume administer (ml): 1,000 Total IV fluid infused: 1,000 Progress Note Anesthesia document: Postop Eval 1 completed: Yes
[2024-05-07] MEDS: traMADol 50 MG Tablet PO (10:24)
--- NOTE | 2024-05-07 17:05 | POSTOPAN2_ITS ---
Anesthesia Postop Eval I Sum Postop Eval Completion status Anesthesia document: Postop Eval 1 completed: Yes Anesthesia Postop Eval I Summary Anesthesia Postop Eval I Summary: Anesthesia Postop Eval I: Assessment Summary Airway patent Yes 05/07/24 09:07 [employer] SU[employer]VISORVIOLET Spontaneous unlabored Yes 05/07/24 09:07 ANAMIKA respirations Mental status Awake,Calm 05/07/24 09:07 [employer].LICHA nausea No 05/07/24 09:07 ANAMIKA Vomiting No 05/07/24 09:07 ANAMIKA Anesthesia Postop Eval I: Fluid Summary Crystalloid volume administer 1,000 05/07/24 09:07 ANAMIKA (ml) Colloids volume administered ( ml) Blood Product volume administered (ml) Total IV fluid infused 1,000 05/07/24 09:07 ANAMIKA Anesthesia Postop Eval I: Summary Notes Anesthesia Complication No 05/07/24 09:07 ANAMIKA Anesthesia Complication Comment: Post-operative progress note Anesthesia: Postop Eval II Evaluation Mental status: Awake and Calm Pain Level: 1 nausea: No Vomiting: No Complications Anesthesia Complication: No
== END 2024-05-07 11:30 | disposition home or self-care (01) ==
LOC: SDC 05:50 → AC 05:51
PROVIDERS: Anesthesiology; PCP Family Medicine; Referring Provider Surgery; Visit Provider Surgery
PROC: (CPT 47610; principal; 2024-05-07 07:10)
DX: K81.1 Chronic cholecystitis (principal); F41.8 Other specified anxiety disorders; Z79.899 Other long term (current) drug therapy; K21.9 Gastro-esophageal reflux disease without esophagitis
CPT/HCPCS: 47562; 00790; 74300; 76000; 81025; 88304; 93005; J7120; J2405

== ENCOUNTER → 2024-06-04 | Outpatient (CLI) | payer OTHER, SELFPAY ==
--- NOTE | 2024-06-04 17:43 | US_ITS ---
STUDY: ULTRASOUND OF THE FEMALE PELVIS - COMPLETE REASON FOR EXAM: Female, 24 years old. AUB LMP: 05/06/2024 TECHNIQUE: Transabdominal and Transvaginal TECHNICAL QUALITY: Adequate. COMPARISON: CT scan 02/27/2024. FINDINGS: The uterus is anteverted and is in a midline position. The uterus measures 9.1 x 5.0 x 2.9 cm. Normal uterine cervix. The endometrium measures 4 mm in thickness, and is hyperechoic. There is no demonstrated endometrial mass. There is no demonstrated myometrial mass. I.U.D. - The patient does not have an I.U.D. The right ovary is visualized. The right ovary measures 2.4 x 1.6 x 1.3 cm. There is no right ovarian cyst or ovarian mass. There is no visualized right adnexal mass or complex lesion. There is normal arterial and normal venous vascularity. The left ovary is visualized. The left ovary measures 2.7 x 1.7 x 1.4 cm. There is no left ovarian cyst or ovarian mass. There is no visualized left adnexal mass or complex lesion. There is normal arterial and normal venous vascularity. There is no fluid in the cul-de-sac. The pre void volume of the bladder was 116 ml. US/Pelvic w/ Transvaginal IMPRESSION: Normal female pelvis. Electronically Signed: Mike Fang MD at 22:35 EDT ,
== END | disposition home or self-care (01) ==
LOC: US 17:39
PROVIDERS: PCP Family Medicine; Referring Provider Nurse Practitioner Family; Visit Provider Nurse Practitioner Family
DX: N93.9 Abnormal uterine and vaginal bleeding, unspecified (principal)
CPT/HCPCS: 76830; 76856

== ENCOUNTER → 2024-11-11 | Outpatient (CLI) | payer OTHER, SELFPAY ==
[2024-11-11 15:40] LABS: Absolute Lymphocyte Count 2.73 X10^3/uL (0.83-4.51); Absolute Neutrophil Count 8.9 X10^3/uL (2.0-7.7); Basophil# 0.06 X10^3/uL; Basophil% 0.5 % (0-1); Eosinophil# 0.11 X10^3/uL; Eosinophils% 0.9 % (0-5); Hematocrit 43.2 % (37-47); Hemoglobin 14.2 g/dL (12.0-15.0); Lymphocyte # 2.73 X10^3/ul (0.83-4.51); Lymphocyte % 21.7 % (19-41); Mean Corp Hgb Conc 32.9 g/dL (32-36); Mean Corpuscular Hgb 29.9 pg (27.0-32.0); Mean Corpuscular Volume 90.9 fL (81-99); Mean Platelet Vol. 9.7 fl (6.2-12.0); Monocyte# 0.73 X10^3/uL; Monocyte% 5.8 % (0-10); NRBC Flagged by Analyzer 0 % (0-5); Neutrophil # 8.86 X10^3/uL (2.7-7.7); Neutrophil % 70.5 % (47-70); Platelet Count 312 K/mm3 (150-450); RBC Distribution Width CV 12.2 % (11.6-14.6); RBC Distribution Width SD 40.4 fl (35.1-43.9); Red Blood Count 4.75 M/mm3 (4.2-5.4); White Blood Count 12.6 K/mm3 (4.4-11.0)
[2024-11-11 16:01] LABS: ALB/GLOB Ratio 0.8 RATIO (0.9-2.4); AST(SGOT) 14 U/L (15-37); Alanine Aminotransfer ALT/SGPT 25 U/L (13-56); Albumin, Serum 3.2 g/dL (3.2-5.0); Alkaline Phosphatase 63 U/L (45-117); Anion Gap 4 (5-15); BUN 9 mg/dL (7-18); BUN/Creat Ratio 15.1 RATIO (10-20); Calcium,Total 9.1 mg/dL (8.5-10.1); Chloride 108 mmol/L (98-107); EST Glomerular Filtration Rate 132 mL/min (>60); Est Glom Filt Rate - Afr Amer 159 mL/min (>60); Globulin 3.8 g/dL (2.2-4.2); Glucose 89 mg/dL (74-106); Potassium 3.8 mmol/L (3.5-5.1); Sodium Level 138 mmol/L (136-145)
== END | disposition home or self-care (01) ==
LOC: MTLAB 11:41
PROVIDERS: PCP Family Medicine; Referring Provider Internal Medicine; Visit Provider Internal Medicine
DX: K92.1 Melena (principal); R10.13 Epigastric pain
CPT/HCPCS: 36415; 80053; 85025